=== PATIENT | female | born 1995 | race Caucasian/White ===

== ENCOUNTER 2022-01-09 15:39 | Emergency (ER) | payer SELFPAY ==
[2022-01-09] MEDS ORDERED: LORazepam 1 MG Tab PO ONE (16:38)
[2022-01-09 17:42] LABS: ACETAMINOPHEN <2.0 ug/mL; BLOOD UREA NITROGEN,BUN 8 mg/dL (7.0-18.0); CARBON DIOXIDE,CO2 21.9 mmol/L (21.0-32.0); CHLORIDE,CL 106 mmol/L (98-107); GLUCOSE RANDOM 103 mg/dL (74-106); POTASSIUM,K 3.8 mmol/L (3.5-5.1); SODIUM,NA 138 mmol/L (136-145)
[2022-01-09 17:44] LABS: ESTIMATED GFR 91 mL/min (>60)
== END 2022-01-09 19:25 | disposition home or self-care (01) ==
LOC: MW.ED 15:39
DX: R47.9 Unspecified speech disturbances (principal); Z86.16 Personal history of COVID-19
CPT/HCPCS: 36415; 70450; 80053; 80143; 80179; 80305; 80307; 81001; 83735; 84443; 85025; 93005; 99285; A9270; 93010; 99284